=== PATIENT | female | born 1965 | race Caucasian/White ===

== ENCOUNTER 2019-01-11 22:40 | Emergency (ER) | payer OTHER ==
[~2019-01-11] VITALS: Ht 170.2 cm; Wt 92.5 kg
[2019-01-11 23:43] LABS: BILIRUBIN,URINE SMALL (NEG); CLARITY,URINE CLEAR; COLOR,URINE YELLOW; NITRITE,URINE NEGATIVE (NEG); PROTEIN,URINE NEGATIVE (NEG-TRACE)
[2019-01-11 23:49] LABS: BACTERIA,URINE MODERATE /HPF (0-FEW); RBC,URINE RARE /HPF (0-2); SQUAMOUS EPITHELIAL CELL,UR MANY /LPF; WBC,URINE OCC /HPF (0-4)
--- NOTE | 2019-01-12 01:25 | RAD ---
PQRS Compliance statement: One or more of the following individualized dose reduction techniques were utilized for this examination: 1. Automated exposure control. 2. Adjustment of the mA and/or kV according to patient size. 3. Use of iterative reconstruction technique. Indication:syncope TECHNIQUE: CT head without IV contrast COMPARISON:None FINDINGS: No pathologic extra-axial or intra-axial fluid collection. The ventricles and basal cisterns are within normal limits. No acute intracranial bleed. No focal loss of trivedi-white differentiation. Orbits are within normal limits. No large scalp hematoma. No acute calvarial fracture. Visualized paranasal sinuses and mastoid air cells are clear. The comparison thickening seen of the right sphenoid sinus. IMPRESSION: No acute intracranial bleed or acute calvarial fracture. Chronic right sphenoid sinus disease. Electronically signed by: Campos Anderson DO (01/12/2019 1:22 AM) [facility]
[2019-01-12 01:30] LABS: BASO # 0.1 x10^3/uL (0.0-0.2); BASO % 1 % (0-3); EOS # 0.2 x10^3/uL (0.0-0.7); EOS % 3 % (0-3); HEMATOCRIT 40.1 % (36.0-47.0); HEMOGLOBIN 13.5 g/dL (12.0-15.5); LYMPH % 30 % (24-48); MEAN CORPUSCULAR HEMOGLOBIN 30 pg (25-35); MEAN CORPUSCULAR HGB CONC 34 g/dL (31-37); MEAN CORPUSCULAR VOLUME 89 fL (79-100); MONO # 0.5 x10^3/uL (0.0-1.1); MONO % 7 % (0-9); NEUT # 3.9 x10^3uL (1.8-7.7); NEUT % 59 % (31-73); PLATELET COUNT 145 x10^3/uL (140-400); WHITE BLOOD COUNT 6.7 x10^3/uL (4.0-11.0)
[2019-01-12 01:49] LABS: CREATININE 0.8 mg/dL (0.6-1.0); GFR 74.7; POTASSIUM 3.8 mmol/L (3.5-5.1)
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
[2019-01-12 01:54] LABS: ALBUMIN 3.6 g/dL (3.4-5.0); TOTAL BILIRUBIN 0.5 mg/dL (0.2-1.0); TOTAL PROTEIN 7.3 g/dL (6.4-8.2)
--- NOTE | 2019-01-12 02:00 | RAD ---
PROCEDURE: CHEST PA LATERAL CLINICAL INDICATION: syncope COMPARISON: None FINDINGS: No pneumothorax identified. Cardiac and mediastinal contours unremarkable. No pulmonary consolidation or acute airspace disease. No acute osseous abnormalities identified. IMPRESSION: No pulmonary consolidation or acute airspace disease. Electronically signed by: Campos Anderson DO (01/12/2019 1:57 AM) [facility]
[2019-01-12 03:45] VITALS: BP 168/80
--- NOTE | 2019-01-12 06:45 | EKG ---
[facility] [address] [place] [address] Test Date: 2019-01-11 Test Time: 23:48:50 Pat Name: JUANA WEST Department: Room: Gender: F [employer] Trainer: : 1965 Requested By: CELIA BOYLE Order Number: [id number] Reading MD: Jono Walker MD Measurements Intervals [place] Rate: 60 P: 56 CA: 144 QRS: 28 QRSD: 92 T: 35 QT: 430 QTc: 434 Interpretive Statements SINUS RHYTHM NON-SPECIFIC ST/T CHANGES. Electronically Signed On 01-21-2019 9:24:10 CDT by Jono Walker MD
== END 2019-01-12 04:09 | disposition home or self-care (01) ==
LOC: ER 22:40 → EEVIPCON 22:40 → ER 01-12 04:09
DX: R55 Syncope and collapse (principal); R05 Cough; R09.89 Other specified symptoms and signs involving the circulatory and respiratory systems; Z86.79 Personal history of other diseases of the circulatory system
CPT/HCPCS: 36415; 70450; 71046; 80053; 81001; 83880; 84484; 85025; 87086; 93005; 99285-25

== ENCOUNTER → 2022-01-29 | Outpatient (CLI) | payer OTHER ==
--- NOTE | 2022-01-29 12:38 | RAD ---
XR SHOULDER_LEFT 2+ VIEWS DATE: 01/29/2022 9:26 AM INDICATION: CHRONIC LEFT SHOULDER PAIN COMPARISON: None. FINDINGS: Bones: There is no evidence of acute fracture or dislocation. Joints: Mild degenerative changes of the acromioclavicular joint. Glenohumeral joint is congruent. T he acromiohumeral distance is not narrowed. Miscellaneous: No abnormal soft tissue calcifications in the shoulder. IMPRESSION: Mild AC joint osteoarthritis. Electronically signed by: Arpit Lynne MD (01/29/2022 12:36 PM) [id number]
== END ==
LOC: RAD 09:04
PROVIDERS: ATTEND Anesthesiology Pain Medicine
DX: Z02.71 Encounter for disability determination (principal); M19.012 Primary osteoarthritis, left shoulder
CPT/HCPCS: 73030

== ENCOUNTER 2022-03-23 10:13 | Emergency (ER) | payer SELFPAY ==
[~2022-03-23] VITALS: Ht 170.2 cm; Wt 90.9 kg
[2022-03-23 10:58] LABS: BASO # 0.1 x10^3/uL (0.0-0.2); BASO % 1 % (0-3); EOS % 1 % (0-3); HEMATOCRIT 41.9 % (36.0-47.0); HEMOGLOBIN 14.4 g/dL (12.0-15.5); LYMPH # 0.7 x10^3/uL (1.0-4.8); LYMPH % 10 % (24-48); MEAN CORPUSCULAR HEMOGLOBIN 31 pg (25-35); MEAN CORPUSCULAR HGB CONC 34 g/dL (31-37); MEAN CORPUSCULAR VOLUME 89 fL (79-100); MONO # 0.5 x10^3/uL (0.0-1.1); MONO % 7 % (0-9); NEUT # 5.8 x10^3/uL (1.8-7.7); NEUT % 82 % (31-73); PLATELET COUNT 149 x10^3/uL (140-400); RED BLOOD COUNT 4.71 x10^6/uL (3.50-5.40); RED CELL DISTRIBUTION WIDTH 13.9 % (11.5-14.5); WHITE BLOOD COUNT 7.1 x10^3/uL (4.0-11.0)
[2022-03-23] MEDS: methylPREDNISolone SOD SUCC PF 125 MG/2 ML VIAL. IV ONE (10:59)
[2022-03-23] MEDS: IPRATRPIUM/ALBUTEROL 0.5/2.5MG 3 ML NEBU. NEB ONE (10:59)
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
--- NOTE | 2022-03-23 11:04 | RAD ---
INDICATION: Reason: SOA / Spl. Instructions: / History: COMPARISON: January 2019 FINDINGS: Frontal view of chest obtained. Cardiomediastinal silhouette is similar to prior examination. Scoliotic curvature of the spine. Hyperexpanded lungs again seen without a definite region of airspace consolidation. Some limitation a t left lung base secondary to overlying structures obscuring. IMPRESSION: * No focal airspace consolidation or edema. Electronically signed by: Jonathan Ramos MD (03/23/2022 11:01 AM) [id number]
[2022-03-23 11:10] LABS: CALCIUM 9.3 mg/dL (8.5-10.1); CREATININE 0.8 mg/dL (0.6-1.0); GFR 73.9; POTASSIUM 3.6 mmol/L (3.5-5.1)
[2022-03-23 11:16] LABS: ALBUMIN 3.7 g/dL (3.4-5.0); ALBUMIN/GLOBULIN RATIO 0.9 (1.0-1.7); TOTAL BILIRUBIN 0.4 mg/dL (0.2-1.0); TOTAL PROTEIN 7.6 g/dL (6.4-8.2)
[2022-03-23 11:24] LABS: INFLUENZA A PATIENT NEGATIVE (NEGATIVE); INFLUENZA B PATIENT NEGATIVE (NEGATIVE)
[2022-03-23 11:40] LABS: PLT ESTIMATE ADEQUATE (ADEQUATE)
[2022-03-23 12:24] VITALS: BP 130/61
[2022-03-23] MEDS ORDERED: BENZ-8 PO (12:24)
[2022-03-23] MEDS ORDERED: FLUT10.6 IH (12:24)
--- NOTE | 2022-03-24 01:47 | EKG ---
[facility] [address] [place] [address] Test Date: 2022-03-23 Test Time: 10:23:31 Pat Name: JUANA WEST Department: Room: Gender: F Mohel: : 1965 Requested By: BISI OLEA Order Number: [id number] Reading MD: Jayjay Clark Measurements Intervals [place] Rate: 65 P: 76 IN: 146 QRS: 42 QRSD: 92 T: 61 QT: 438 QTc: 461 Interpretive Statements SINUS RHYTHM NON SPECIFIC ST-T WAVE CHANGES Electronically Signed On 03-25-2022 11:11:49 CDT by Jayjay Clark
== END 2022-03-23 12:45 | disposition home or self-care (01) ==
LOC: ER 10:13
DX: J44.1 Chronic obstructive pulmonary disease with (acute) exacerbation (principal); F17.200 Nicotine dependence, unspecified, uncomplicated; Z20.822 Contact with and (suspected) exposure to COVID-19
CPT/HCPCS: 36415; 71045; 80053; 83605; 83880; 84484; 85025; 87428; 94640; 96374; 99285; J2930; 93005